=== PATIENT | female | born 1990 ===

== ENCOUNTER 2022-02-01 00:28 | Inpatient (IN) | payer SELFPAY ==
[2022-02-01] MEDS ORDERED: Terbutaline 1 MG/ML SDV SUBCUT PRN (02:06)
[2022-02-01] MEDS ORDERED: Sodium Chloride 0.9% 2.5 ML Syringe FLUSH PRN (02:06)
[2022-02-01] MEDS ORDERED: Carboprost Tromethamine 250 MCG/1 ML Amp IM PRN (02:06)
[2022-02-01] MEDS ORDERED: Lidocaine 1% 50 ML MDV INJECT PRN (02:06)
[2022-02-01] MEDS ORDERED: Sodium Chloride 0.9% 20 ML SDV IV PRN (02:06)
[2022-02-01] MEDS ORDERED: Water For Irrigation,Sterile 1,000 ML Container IRR PRN (02:06)
[2022-02-01] MEDS ORDERED: Sodium Chloride 0.9% 10 ML Syringe FLUSH PRN (02:06)
[2022-02-01] MEDS ORDERED: Tranexamic Acid 1,000 MG in Sodium Chloride 0.9% 100 ML IV PRN (02:06)
[2022-02-01] MEDS ORDERED: Butorphanol 1 MG/ML SDV IVPUSH PRN (02:06)
[2022-02-01] MEDS ORDERED: Methylergonovine 0.2 MG/1 ML Amp IM PRN (02:06)
[2022-02-01] MEDS ORDERED: Misoprostol 200 MCG Tab PO PRN (02:06)
[2022-02-01] MEDS ORDERED: Lactated Ringers 1,000 ML IV SCH (02:15)
[2022-02-01] MEDS ORDERED: Oxytocin/0.9 % Sodium Chloride 30 UNIT/500 ML BAG IV SCH ×2 (02:15)
[2022-02-01] MEDS ORDERED: Ropivacaine in NACL,ISO-OSM/PF 400 ML ONE (03:01)
[2022-02-01] MEDS ORDERED: ePHEDrine 50 MG/ML SDV IVPUSH PRN (03:18)
[2022-02-01] MEDS ORDERED: Ropivacaine in NACL,ISO-OSM/PF 800 MG in Premix Bag 1 BAG EPIDUR SCH ×2 (03:30)
[2022-02-01] MEDS ORDERED: Docusate Sodium 100 MG Cap PO PRN (06:25)
[2022-02-01] MEDS ORDERED: Ibuprofen 400 MG Tab PO PRN (06:25)
[2022-02-01] MEDS ORDERED: Benzocaine/Menthol 20%-0.5% Spray 78 GM Cannister TOP PRN (06:25)
[2022-02-01] MEDS ORDERED: Acetaminophen 500 MG Tab PO PRN ×2 (06:25)
[2022-02-01] MEDS ORDERED: oxyCODONE 5 MG Tab PO PRN (06:25)
[2022-02-01] MEDS ORDERED: Bisacodyl 10 MG Supp RECTAL PRN (06:25)
[2022-02-01] MEDS ORDERED: Lanolin 100% Cream 7 GM Tube TOP PRN (06:25)
[2022-02-01] MEDS ORDERED: Witch Hazel Medicated Pads 40/Jar TOP PRN (06:25)
[2022-02-01] MEDS: Ibuprofen 800 MG Tab PO PRN ×2 (09:43→18:21)
[2022-02-02] MEDS: Ibuprofen 800 MG Tab PO PRN (03:17)
== END 2022-02-02 13:23 | disposition home or self-care (01) | DRG 805 ==
LOC: MW.OBCHECK 00:28 → MW.OB 00:29 → MW.OBCHECK 02:06 → MW.OB 02:06 → OBSVTOIN 05:59 → MW.OB 12:50
PROVIDERS: ADMIT Obstetrics & Gynecology; ATTEND Obstetrics & Gynecology
PROC: 10E0XZZ Delivery of Products of Conception, External Approach (ICD-10-PCS; principal; 2022-02-01)
PROC: 3E0R3BZ Introduction of Anesthetic Agent into Spinal Canal, Percutaneous Approach (ICD-10-PCS; 2022-02-01)
PROC: 00HU33Z Insertion of Infusion Device into Spinal Canal, Percutaneous Approach (ICD-10-PCS; 2022-02-01)
DX: O98.52 Other viral diseases complicating childbirth (principal); U07.1 COVID-19; Z37.0 Single live birth; Z3A.38 38 weeks gestation of pregnancy
CPT/HCPCS: 36415; 59025; 59409; 82803; 84112; 85014; 85018; 85027; 86592; 86850; 86900; 86901; A9270-GY; J2795; J7120; U0002